=== PATIENT | male | born 1960 | race African-American/Black ===

== ENCOUNTER 2016-11-03 00:26 | Inpatient (IN) | payer MEDICAID, OTHER ==
[~2016-11-03] VITALS: Ht 182.9 cm; Wt 72.6 kg
[~2016-11-03 00:26] MED LIST: GABA-531 PO; HUMULIN N SUBCUT; HUMULIN R SUBCUT; LISI40TA4 PO; MORP60TA6 PO; QUET100T PO; TRAM50TA3 PO
[2016-11-03] MEDS ORDERED: ONDANSETRON HCL 4MG/2ML VIAL IV STA (01:04)
[2016-11-03] MEDS ORDERED: SODIUM CHLORIDE 0.9% 1,000 ML IV ONE (01:04)
[2016-11-03] MEDS ORDERED: MORPHINE SULFATE 4 MG/ML CPJ (NOT FOR IM USE) IV STA (01:04)
[2016-11-03] MEDS ORDERED: LABETALOL HCL 20MG/4ML CARPUJECT IV ONE (01:15)
[2016-11-03] MEDS ORDERED: ASPIRIN 81MG TABLET PO ONE (01:15)
[2016-11-03 01:39] LABS: BASOPHILS % 0.7 % (0.0-2.0); EOSINOPHILS % 1.5 % (0.0-5.0); HEMOGLOBIN. 14.3 g/dL (14.0-18.0); LYMPHOCYTES % 17.5 % (20.0-50.0); MEAN CORPUSCULAR HEMOGLOBIN 27.4 pg (28.0-32.0); MEAN CORPUSCULAR VOLUME 80.6 fL (80.0-94.0); MEAN PLATELET VOLUME 9.3 fl (7.4-10.4); MONOCYTES % 5.4 % (2.0-8.0); NEUTROPHILS % 74.9 % (40.0-76.0); PLATELET 290 x1000/uL (130-400); RED BLOOD CELL COUNT 5.21 mill/uL (4.7-6.1); RED CELL DISTRIBUTION WIDTH 13.7 % (11.6-14.6)
[2016-11-03 01:48] LABS: PROTHROMBIN TIME 10.9 sec (9.4-11.6)
[2016-11-03] MEDS ORDERED: LABETALOL 5MG/ML SYR 20 MG/4 ML SYRINGE IV NR (02:00)
[2016-11-03 02:19] LABS: CHLORIDE 99 mEq/L (98-107); ETHANOL BLOOD < 10 mg/dL; TROPONIN I < 0.02 ng/mL (0.00-0.04)
[2016-11-03 02:20] LABS: CARBON DIOXIDE 26 mEq/L (21-32)
[2016-11-03] MEDS ORDERED: INSULIN REGULAR (HUMULIN R) 300UNITS/3ML IV NR (03:15)
[2016-11-03] MEDS ORDERED: LEVOFLOXACIN 750MG PREMIX 150 ML IV NR (03:15)
[2016-11-03] MEDS ORDERED: POTASSIUM BICARB/CIT ACID 25 MEQ TABLET.EFF PO NR (03:15)
[2016-11-03] MEDS ORDERED: METRONIDAZOLE 500 MG PREMIX 100 ML IV NR (03:15)
[2016-11-03] MEDS ORDERED: SODIUM CHLORIDE 0.9% 1000ML BAG (SEPSIS BOLUS) IV NR ×2 (03:15→05:00)
[2016-11-03 03:53] LABS: CLARITY URINE CLEAR (CLEAR); COLOR URINE YELLOW (YELLOW); GLUCOSE URINE 3+ (NEGATIVE); KETONES URINE TRACE (NEGATIVE); LEUKOCYTE ESTERASE URINE NEGATIVE (NEGATIVE); NITRITE URINE NEGATIVE (NEGATIVE); OCCULT BLOOD URINE NEGATIVE (NEGATIVE); PH URINE 8.5 (4.5-8.0); PROTEIN URINE NEGATIVE (NEGATIVE); SPECIFIC GRAVITY URINE 1.019 (1.005-1.030)
[2016-11-03 03:55] LABS: *AMPHETAMINES SCREEN URINE NEGATIVE (NEGATIVE); *BARBITURATES SCREEN URINE NEGATIVE (NEGATIVE); *BENZODIAZEPINES SCREEN URINE NEGATIVE (NEGATIVE); *COCAINE SCREEN URINE NEGATIVE (NEGATIVE); CANNABINOID URINE SCREEN PRESUMTIVE POSITIVE (NEGATIVE); METHADONE URINE SCREEN NEGATIVE (NEGATIVE); OPIATES URINE SCREEN PRESUMTIVE POSITIVE (NEGATIVE); PHENCYCLIDINE URINE SCREEN NEGATIVE (NEGATIVE)
[2016-11-03] MEDS ORDERED: HYDROCODONE/ACETAMINOPHEN 10/325MG TABLET PO ONE (09:00)
[2016-11-03] MEDS ORDERED: CLONIDINE 0.2MG TABLET PO ONE (09:00)
[2016-11-03 10:50] VITALS: BP 167/71
[2016-11-03] MEDS ORDERED: IPRATROPIUM/ALBUTEROL 0.5-3(2.5)MG/3ML NEB INH PRN (11:00)
[2016-11-03] MEDS ORDERED: HYDROCODONE/ACETAMINOPHEN 10/325MG TABLET PO PRN (11:00)
[2016-11-03] MEDS ORDERED: DEXTROSE 50% WATER 50ML SYRINGE IV PRN (11:00)
[2016-11-03] MEDS ORDERED: DIPHENHYDRAMINE 50MG/ML VIAL IV PRN (11:00)
[2016-11-03] MEDS ORDERED: ONDANSETRON HCL 4MG/2ML VIAL IV PRN (11:00)
[2016-11-03] MEDS ORDERED: AMLODIPINE 10MG TABLET PO SCH (11:00)
[2016-11-03] MEDS ORDERED: ACETAMINOPHEN 325MG TABLET PO PRN (11:00)
[2016-11-03] MEDS ORDERED: DOCUSATE SODIUM 100MG CAPSULE PO PRN (11:00)
[2016-11-03] MEDS: TRAMADOL 50MG TABLET PO SCH ×2 (11:30→17:00)
[2016-11-03] MEDS ORDERED: ROCEPHIN XX SCH (11:30)
[2016-11-03 12:00] VITALS: BP_SYST 120; BP_SYST 128; BP_DIAS 67; BP_DIAS 81
[2016-11-03] MEDS: ENOXAPARIN 40MG/0.4ML SYR SUBCUT SCH (12:18)
[2016-11-03] MEDS: LISINOPRIL 5MG TABLET PO SCH ×2 (12:19→22:12)
[2016-11-03] MEDS: GABAPENTIN 300MG CAPSULE PO SCH ×2 (12:19→18:33)
[2016-11-03] MEDS: BLOOD SUGAR DIAGNOSTIC STRIP TEST SCH ×3 (12:25→21:00)
[2016-11-03] MEDS: INSULIN LISPRO 100 UNITS/ML SUBCUT SCH ×3 (12:37→22:17)
[2016-11-03] MEDS: CEFTRIAXONE 1 G PREMIX 50 ML IV SCH (14:46)
[2016-11-03 15:21] LABS: CREATINE KINASE 33 IU/L (39-308); TROPONIN I < 0.02 ng/mL (0.00-0.04)
[2016-11-03 16:00] VITALS: BP 129/73
[2016-11-03] MEDS: NIFEDIPINE XL 30MG TAB PO SCH (17:02)
[2016-11-03] MEDS: HYDROCODONE/ACETAMINOPHEN 10/325MG TABLET PO PRN (18:51)
[2016-11-03 20:00] VITALS: BP 158/87
[2016-11-03 23:02] LABS: CREATINE KINASE 36 IU/L (39-308); TROPONIN I < 0.02 ng/mL (0.00-0.04)
[2016-11-04] VITALS (7 sets, daily range): BP systolic 154–195; BP diastolic 84–97
[2016-11-04] MEDS: HYDROCODONE/ACETAMINOPHEN 10/325MG TABLET PO PRN ×3 (00:02→16:58)
[2016-11-04] MEDS: LORAZEPAM 1MG TABLET PO PRN ×2 (00:04→04:38)
[2016-11-04] MEDS: HYDROCODONE/ACETAMINOPHEN 5/325MG TABLET PO PRN ×2 (04:42→13:20)
[2016-11-04] MEDS: BLOOD SUGAR DIAGNOSTIC STRIP TEST SCH ×4 (05:54→17:24)
[2016-11-04] MEDS: INSULIN LISPRO 100 UNITS/ML SUBCUT SCH ×4 (06:16→17:49)
[2016-11-04 07:26] LABS: BASOPHILS % 0.3 % (0.0-2.0); HEMATOCRIT. 37.5 % (42.0-52.0); HEMOGLOBIN. 12.8 g/dL (14.0-18.0); LYMPHOCYTES % 26.8 % (20.0-50.0); MEAN CORPUSCULAR HEMOGLOBIN 27.6 pg (28.0-32.0); MEAN CORPUSCULAR VOLUME 80.7 fL (80.0-94.0); MEAN PLATELET VOLUME 9.1 fl (7.4-10.4); MONOCYTES % 7.1 % (2.0-8.0); NEUTROPHILS % 64.8 % (40.0-76.0); PLATELET 288 x1000/uL (130-400); RED BLOOD CELL COUNT 4.64 mill/uL (4.7-6.1); RED CELL DISTRIBUTION WIDTH 13.8 % (11.6-14.6)
[2016-11-04 08:17] LABS: CARBON DIOXIDE 28 mEq/L (21-32); CHLORIDE 100 mEq/L (98-107); HDL CHOLESTEROL 47 mg/dL (40-59); LDL CHOLESTEROL 81 mg/dL (5-100)
[2016-11-04] MEDS: NIFEDIPINE XL 30MG TAB PO SCH (08:37)
[2016-11-04] MEDS: LISINOPRIL 5MG TABLET PO SCH (08:37)
[2016-11-04] MEDS: GABAPENTIN 300MG CAPSULE PO SCH ×3 (08:37→16:57)
[2016-11-04] MEDS: TRAMADOL 50MG TABLET PO SCH ×3 (08:39→17:00)
[2016-11-04] MEDS: CEFTRIAXONE 1 G PREMIX 50 ML IV SCH (13:18)
[2016-11-04] MEDS: ENOXAPARIN 40MG/0.4ML SYR SUBCUT SCH (13:18)
[2016-11-04] MEDS: CLONIDINE 0.1MG TABLET PO PRN ×2 (14:20)
[2016-11-04] MEDS ORDERED: POTASSIUM CHLORIDE 20MEQ TABLET SR PO NR (17:00)
== END 2016-11-04 19:45 | disposition home or self-care (01) | DRG 199 ==
LOC: ER 00:26 → ENRESERV 07:39 → 8WST 10:47
PROVIDERS: ADMIT Internal Medicine; ATTEND Internal Medicine
DX: I10 Essential (primary) hypertension (principal); E87.2 Acidosis; K74.60 Unspecified cirrhosis of liver; E11.65 Type 2 diabetes mellitus with hyperglycemia; E87.6 Hypokalemia; F17.210 Nicotine dependence, cigarettes, uncomplicated; G89.29 Other chronic pain; N39.0 Urinary tract infection, site not specified; M54.9 Dorsalgia, unspecified; Z82.49 Family history of ischemic heart disease and other diseases of the circulatory system; Z91.19 Patient's noncompliance with other medical treatment and regimen; Z79.899 Other long term (current) drug therapy
CPT/HCPCS: 36415; 71010; 74176; 76705; 80053; 80061; 80076; 80305; 81001; 82550; 82962; 83605; 83690; 83880; 84443; 84484; 85025; 85610; 87040; 93005; 93970; 96361; 96365; 96366; 96367; 96375; 99291; G0482; J0696; J1650; J1815; J1956; J2270; J2405; J3490; J7030; J7040

== ENCOUNTER 2016-11-19 16:52 | Emergency (ER) | payer MEDICAID ==
[~2016-11-19] VITALS: Ht 182.9 cm; Wt 100.0 kg
[2016-11-19] MEDS ORDERED: MORPHINE SULFATE 10 MG/ML CPJ IM ONE (18:45)
[2016-11-19] MEDS ORDERED: ONDANSETRON 4MG ODT PO ONE (18:45)
[2016-11-19] MEDS ORDERED: INSULIN REGULAR (HUMULIN R) 300UNITS/3ML SUBCUT ONE (19:15)
[2016-11-19 19:37] VITALS: BP 148/88
== END 2016-11-19 19:30 | disposition home or self-care (01) ==
LOC: ER 17:04
DX: M54.2 Cervicalgia (principal); I10 Essential (primary) hypertension; E11.9 Type 2 diabetes mellitus without complications; J45.909 Unspecified asthma, uncomplicated; F17.210 Nicotine dependence, cigarettes, uncomplicated; Z79.4 Long term (current) use of insulin; W01.0XXA Fall on same level from slipping, tripping and stumbling without subsequent striking against object, initial encounter; Y93.89 Activity, other specified; Y92.89 Other specified places as the place of occurrence of the external cause
CPT/HCPCS: 82962; 96372; 99284; J1815; J2270; Q0162

== ENCOUNTER 2016-12-10 13:44 | Emergency (ER) | payer MEDICAID, OTHER ==
[~2016-12-10] VITALS: Ht 182.9 cm; Wt 77.0 kg
[2016-12-10] MEDS ORDERED: MORPHINE SULFATE 4 MG/ML CPJ (NOT FOR IM USE) IV STA (15:38)
[2016-12-10] MEDS ORDERED: ONDANSETRON HCL 4MG/2ML VIAL IV STA (15:38)
[2016-12-10] MEDS ORDERED: NITROGLYCERIN 0.4MG TABLET SL SL PRN (15:45)
[2016-12-10 16:05] LABS: BASOPHILS % 0.4 % (0.0-2.0); EOSINOPHILS % 1.6 % (0.0-5.0); HEMATOCRIT. 37.8 % (42.0-52.0); HEMOGLOBIN. 13.1 g/dL (14.0-18.0); MEAN CORPUSCULAR HEMOGLOBIN 28.5 pg (28.0-32.0); MEAN CORPUSCULAR VOLUME 82.3 fL (80.0-94.0); MEAN PLATELET VOLUME 8.4 fl (7.4-10.4); MONOCYTES % 8.8 % (2.0-8.0); NEUTROPHILS % 63.2 % (40.0-76.0); PLATELET 298 x1000/uL (130-400); RED BLOOD CELL COUNT 4.59 mill/uL (4.7-6.1); RED CELL DISTRIBUTION WIDTH 13.7 % (11.6-14.6)
[2016-12-10 16:13] LABS: INR 1.1; PARTIAL THROMBOPLASTIN TIME 27.5 sec (23.4-31.0); PROTHROMBIN TIME 10.9 sec (9.4-11.6)
[2016-12-10 16:22] LABS: CARBON DIOXIDE 31 mEq/L (21-32); CHLORIDE 101 mEq/L (98-107); TROPONIN I < 0.02 ng/mL (0.00-0.04)
[2016-12-10] MEDS ORDERED: INSULIN REGULAR (HUMULIN R) UD 100 UNITS/ML SYR SUBCUT ONE (16:45)
[2016-12-10] MEDS ORDERED: INSULIN REGULAR (HUMULIN R) 300UNITS/3ML SUBCUT ONE (17:15)
[2016-12-10] MEDS ORDERED: KETOROLAC 30MG/ML VIAL IV ONE (18:30)
[2016-12-10] MEDS ORDERED: ASPIRIN 325MG EC TABLET PO ONE (18:30)
[2016-12-10] MEDS ORDERED: MORPHINE SULFATE 4 MG/ML CPJ (NOT FOR IM USE) IV ONE (20:30)
[2016-12-10 20:36] LABS: *AMPHETAMINES SCREEN URINE NEGATIVE (NEGATIVE); *BARBITURATES SCREEN URINE NEGATIVE (NEGATIVE); *BENZODIAZEPINES SCREEN URINE NEGATIVE (NEGATIVE); *COCAINE SCREEN URINE NEGATIVE (NEGATIVE); CANNABINOID URINE SCREEN PRESUMTIVE POSITIVE (NEGATIVE); METHADONE URINE SCREEN NEGATIVE (NEGATIVE); OPIATES URINE SCREEN PRESUMTIVE POSITIVE (NEGATIVE); PHENCYCLIDINE URINE SCREEN NEGATIVE (NEGATIVE)
[2016-12-10] MEDS ORDERED: MORPHINE SULFATE 2 MG/ML CPJ (NOT FOR IM USE) IV ONE (20:45)
[2016-12-10] MEDS ORDERED: MORPHINE SULFATE 2 MG/ML CPJ (NOT FOR IM USE) IV SCH (22:00)
[2016-12-10 23:26] VITALS: BP 155/77
[2016-12-10] MEDS ORDERED: MAGNESIUM/ALUMINUM HYDROXIDE/SIMETHICONE 30ML UDC PO PRN (23:30)
[2016-12-10] MEDS ORDERED: DIPHENHYDRAMINE 50MG/ML VIAL IV PRN (23:30)
[2016-12-10] MEDS ORDERED: ONDANSETRON HCL 4MG/2ML VIAL IV PRN (23:30)
[2016-12-10] MEDS ORDERED: ACETAMINOPHEN 325MG TABLET PO PRN (23:30)
[2016-12-10] MEDS ORDERED: CLONIDINE 0.1MG TABLET PO PRN (23:30)
[2016-12-10] MEDS ORDERED: DEXTROSE 50% WATER 50ML SYRINGE IV PRN (23:30)
[2016-12-10] MEDS ORDERED: MORPHINE SULFATE 2 MG/ML CPJ (NOT FOR IM USE) IV PRN (23:30)
[2016-12-10] MEDS ORDERED: ACETAMINOPHEN 650MG SUPP PR PRN (23:30)
[2016-12-10] MEDS ORDERED: NA PHOS,M-B/NA PHOS,DI-BA ENEMA 118ML PR PRN (23:30)
[2016-12-10] MEDS ORDERED: MVI, ADULT NO.1 10 ML, FOLIC ACID 1 MG, THIAMINE HCL 100 MG in SODIUM CHLORIDE 0.9% 1,0... IV SCH ×4 (23:30)
[2016-12-10] MEDS ORDERED: IPRATROPIUM/ALBUTEROL 0.5-3(2.5)MG/3ML NEB INH PRN (23:30)
[2016-12-10] MEDS ORDERED: ACETAMINOPHEN 650MG/20.3ML UDC GT PRN (23:30)
[2016-12-11] MEDS ORDERED: SODIUM CHLORIDE 0.9% INJ 3ML FLUSH IVF SCH (06:00)
[2016-12-11] MEDS ORDERED: INSULIN LISPRO 100 UNITS/ML SUBCUT SCH (08:20)
[2016-12-11] MEDS ORDERED: THIAMINE HCL 100MG TABLET PO SCH (09:00)
[2016-12-11] MEDS ORDERED: FOLIC ACID 1MG TABLET PO SCH (09:00)
[2016-12-11] MEDS ORDERED: BLOOD SUGAR DIAGNOSTIC STRIP TEST SCH (09:00)
== END 2016-12-11 00:12 | disposition left against medical advice (07) ==
LOC: ER 15:51 → CANBEDREQ 12-11 00:16
DX: R07.2 Precordial pain (principal); E11.65 Type 2 diabetes mellitus with hyperglycemia; R51 Headache; W01.0XXA Fall on same level from slipping, tripping and stumbling without subsequent striking against object, initial encounter; Y93.89 Activity, other specified; Y92.89 Other specified places as the place of occurrence of the external cause; G62.9 Polyneuropathy, unspecified; I10 Essential (primary) hypertension; J32.1 Chronic frontal sinusitis; H40.9 Unspecified glaucoma; J45.909 Unspecified asthma, uncomplicated; M48.02 Spinal stenosis, cervical region; Z79.4 Long term (current) use of insulin; F17.210 Nicotine dependence, cigarettes, uncomplicated; S09.90XA Unspecified injury of head, initial encounter; M25.78 Osteophyte, vertebrae
CPT/HCPCS: 36415; 70450; 71010; 72125; 80053; 80305; 82962; 84484; 85025; 85610; 85730; 93005; 96372; 96374; 96375; 96376; 99285; J1815; J2270; J2405

== ENCOUNTER 2017-03-10 21:59 | Emergency (ER) | payer OTHER, MEDICAID ==
[~2017-03-10] VITALS: Ht 167.6 cm; Wt 86.0 kg
[~2017-03-10 21:59] MED LIST changes: -HUMULIN N SUBCUT
[2017-03-10 23:41] LABS: BASOPHILS % 0.6 % (0.0-2.0); EOSINOPHILS % 1.4 % (0.0-5.0); HEMATOCRIT. 39.6 % (42.0-52.0); HEMOGLOBIN. 13.3 g/dL (14.0-18.0); LYMPHOCYTES % 25.2 % (20.0-50.0); MEAN CORPUSCULAR HEMOGLOBIN 26.8 pg (28.0-32.0); MEAN CORPUSCULAR VOLUME 79.9 fL (80.0-94.0); MEAN PLATELET VOLUME 9.2 fl (7.4-10.4); MONOCYTES % 7.6 % (2.0-8.0); NEUTROPHILS % 65.2 % (40.0-76.0); PLATELET 311 x1000/uL (130-400); RED BLOOD CELL COUNT 4.95 mill/uL (4.7-6.1); RED CELL DISTRIBUTION WIDTH 13.4 % (11.6-14.6)
[2017-03-11 00:12] LABS: CARBON DIOXIDE 31 mEq/L (21-32); CHLORIDE 100 mEq/L (98-107); TROPONIN I 0.05 ng/mL (0.00-0.04)
[2017-03-11 01:34] LABS: CLARITY URINE CLEAR (CLEAR); COLOR URINE YELLOW (YELLOW); KETONES URINE NEGATIVE (NEGATIVE); LEUKOCYTE ESTERASE URINE NEGATIVE (NEGATIVE); NITRITE URINE NEGATIVE (NEGATIVE); OCCULT BLOOD URINE NEGATIVE (NEGATIVE); PROTEIN URINE NEGATIVE (NEGATIVE); SPECIFIC GRAVITY URINE 1.009 (1.005-1.030); UROBILINOGEN URINE 0.2 E.U./dL (0.2-1.0)
[2017-03-11] MEDS ORDERED: SODIUM CHLORIDE 0.9% 1,000 ML IV SCH (01:38)
[2017-03-11 01:54] LABS: AMMONIA < 25 uMol/L (<32)
[2017-03-11 02:32] LABS: *AMPHETAMINES SCREEN URINE NEGATIVE (NEGATIVE); *BARBITURATES SCREEN URINE NEGATIVE (NEGATIVE); *BENZODIAZEPINES SCREEN URINE NEGATIVE (NEGATIVE); *COCAINE SCREEN URINE NEGATIVE (NEGATIVE); CANNABINOID URINE SCREEN PRESUMTIVE POSITIVE (NEGATIVE); METHADONE URINE SCREEN NEGATIVE (NEGATIVE); OPIATES URINE SCREEN NEGATIVE (NEGATIVE); PHENCYCLIDINE URINE SCREEN NEGATIVE (NEGATIVE)
[2017-03-11] MEDS ORDERED: ACETAMINOPHEN 325MG TABLET PO PRN (03:15)
[2017-03-11] MEDS ORDERED: DIPHENHYDRAMINE 50MG/ML VIAL IV PRN (03:15)
[2017-03-11] MEDS ORDERED: DEXTROSE 50% WATER 50ML SYRINGE IV PRN (03:15)
[2017-03-11] MEDS ORDERED: MVI, ADULT NO.1 10 ML, FOLIC ACID 1 MG, THIAMINE HCL 100 MG in SODIUM CHLORIDE 0.9% 1,0... IV NR ×4 (03:15)
[2017-03-11] MEDS ORDERED: ONDANSETRON HCL 4MG/2ML VIAL IV PRN (03:15)
[2017-03-11] MEDS ORDERED: MAGNESIUM/ALUMINUM HYDROXIDE/SIMETHICONE 30ML UDC PO PRN (03:15)
[2017-03-11] MEDS ORDERED: IPRATROPIUM/ALBUTEROL 0.5-3(2.5)MG/3ML NEB INH PRN (03:15)
[2017-03-11] MEDS ORDERED: SODIUM CHL 0.9% + KCL 20MEQ/L 1,000 ML IV SCH (03:15)
[2017-03-11] MEDS ORDERED: CLONIDINE 0.1MG TABLET PO PRN (03:15)
[2017-03-11] MEDS ORDERED: GUAIFENESIN 200MG/10ML SUGAR FREE UDC PO PRN (03:15)
[2017-03-11] MEDS ORDERED: POTASSIUM CHLORIDE 20MEQ TABLET SR PO ONE (05:30)
[2017-03-11] MEDS ORDERED: HYDROCODONE/ACETAMINOPHEN 10/325MG TABLET PO PRN (05:30)
[2017-03-11] MEDS ORDERED: TRAMADOL 50MG TABLET PO PRN (05:30)
[2017-03-11] MEDS ORDERED: INSULIN LISPRO 100 UNITS/ML SUBCUT SCH (08:20)
[2017-03-11] MEDS ORDERED: NIFEDIPINE XL 30MG TAB PO SCH (09:00)
[2017-03-11] MEDS ORDERED: BLOOD SUGAR DIAGNOSTIC STRIP TEST SCH (09:00)
[2017-03-11] MEDS ORDERED: LISINOPRIL 40MG TABLET PO SCH (09:00)
[2017-03-11] MEDS ORDERED: GABAPENTIN 300MG CAPSULE PO SCH (09:00)
[2017-03-11 10:29] VITALS: BP 178/61
== END 2017-03-11 11:20 | disposition left against medical advice (07) ==
LOC: ER 22:24 → EDBEDREQ 03-11 01:40 → EDBEDREQTM 03-11 01:40 → ER 03-11 11:20 → CANBEDREQ 03-11 12:23
DX: E11.65 Type 2 diabetes mellitus with hyperglycemia (principal); G93.41 Metabolic encephalopathy; R53.1 Weakness; I10 Essential (primary) hypertension; F12.10 Cannabis abuse, uncomplicated; G89.4 Chronic pain syndrome; F17.210 Nicotine dependence, cigarettes, uncomplicated; Z79.4 Long term (current) use of insulin; Z88.8 Allergy status to other drugs, medicaments and biological substances
CPT/HCPCS: 36415; 70450; 71045; 80053; 80305; 81001; 82140; 84484; 85025; 93005; 96361; 96365; 96366; 99285; J3411; J3490; J7030